=== PATIENT | female | born 1990 | race Caucasian/White ===

== ENCOUNTER 2020-03-31 11:57 | Inpatient (IN) ==
[2020-03-31] MEDS ORDERED: Ondansetron 4 MG/2 ML VIAL IVP PRN ×2 (12:12→14:42)
[2020-03-31] MEDS ORDERED: Famotidine 20 MG/2 ML VIAL IVP PRN (12:12)
[2020-03-31] MEDS ORDERED: Metoclopramide 10 MG/2 ML VIAL IVP PRN (12:12)
[2020-03-31] MEDS ORDERED: Lidocaine 1% 20 ML MDV INFILT PRN (12:12)
[2020-03-31] MEDS ORDERED: Naloxone 0.4 MG/ML INJ IVP PRN ×2 (12:12→14:42)
[2020-03-31] MEDS ORDERED: *HR* FentaNYL (PF) 100 MCG/2 ML VIAL IVP PRN (12:12)
[2020-03-31] MEDS ORDERED: Azithromycin 500 MG in 0.9 % Sodium Chloride 250 ML IVPB ONE (12:12)
[2020-03-31] MEDS ORDERED: miSOPROStoL 25 MCG TABLET PO PRN (12:16)
[2020-03-31] MEDS: Ringers Solution, Lactated 1,000 ML IVC SCH ×3 (13:20→19:52)
[2020-03-31 13:25] LABS: Basophils # 0.1 K/mcL (0.0-0.2); Basophils % 0.5 %; Eosinophils # 0.1 K/mcL (0.0-0.6); Eosinophils % 0.6 %; Hematocrit 36.4 % (35.3-44.9); Hemoglobin 11.9 g/dL (11.5-15.4); Immature Granulocytes % 0.7 % (0-4); Lymphocytes # 1.4 K/mcL (0.6-4.6); Lymphocytes % 13.2 %; Mean Corpuscular HGB Conc 32.7 g/dL (31.6-35.5); Mean Corpuscular Hemoglobin 28.4 pg (28.0-33.3); Mean Corpuscular Volume 86.9 fL (83.0-100.0); Mean Platelet Volume 10.4 fL (9.4-12.4); Monocytes # 0.7 K/mcL (0.0-1.3); Monocytes % 6.7 %; Neutrophils # 8.4 K/mcL (1.6-8.9); Platelet Count 252 K/mcL (140-400); Red Blood Count 4.19 M/mcL (3.82-4.97); Red Cell Distribution Width 12.5 % (11.5-14.5); Segmented Neutrophils % 78.3 %; White Blood Count 10.8 K/mcL (4.3-11.1)
[2020-03-31 13:49] LABS: Amphetamine Screen,Urine Negative ng/mL (Cutoff=1000); Barbiturate Screen,Urine Negative ng/mL (Cutoff=200); Benzodiazepines Screen,Urine Negative ng/mL (Cutoff=200); Cannabinoid Screen,Urine Negative ng/mL (Cutoff = 50); Cocaine Screen,Urine Negative ng/mL (Cutoff= 300); Opiate Screen,Urine Negative ng/mL (Cutoff=300); Phencyclidine Screen,Urine Negative ng/mL (Cutoff=25)
[2020-03-31] MEDS ORDERED: Ropivacaine/PF 0.2% 20 ML VIAL EP ONE (14:42)
[2020-03-31] MEDS ORDERED: *HR* FentaNYL (PF) 100 MCG/2 ML VIAL EP ONE (14:42)
[2020-03-31] MEDS ORDERED: EPHEDrine 50 MG/ML VIAL IVP PRN (14:42)
[2020-03-31] MEDS ORDERED: Epidural Premix (fent/bupiv) 110 ML EP SCH (14:45)
[2020-03-31] MEDS ORDERED: Oxytocin 20 units/ LR 1000 mL 20 UNIT/1,000 ML BAG IVC SCH (19:15)
[2020-04-01] MEDS ORDERED: Measles/Mumps/Rubella Vacc 0.5 ML VIAL SQ PRN (00:50)
[2020-04-01] MEDS ORDERED: Oxytocin 20 units/ LR 1000 mL 20 UNIT/1,000 ML BAG IVC SCH (00:50)
[2020-04-01] MEDS ORDERED: Benzocaine/Menthol 56 GM AEROSOL SPRAY TP PRN (00:50)
[2020-04-01] MEDS ORDERED: Lanolin 7 G OINT...G. TP PRN (00:50)
[2020-04-01 06:19] LABS: Basophils # 0.1 K/mcL (0.0-0.2); Basophils % 0.3 %; Eosinophils # 0.1 K/mcL (0.0-0.6); Eosinophils % 0.5 %; Hematocrit 33.3 % (35.3-44.9); Hemoglobin 10.8 g/dL (11.5-15.4); Immature Granulocytes % 0.6 % (0-4); Lymphocytes # 1.6 K/mcL (0.6-4.6); Lymphocytes % 11.1 %; Mean Corpuscular HGB Conc 32.4 g/dL (31.6-35.5); Mean Corpuscular Hemoglobin 28.1 pg (28.0-33.3); Mean Corpuscular Volume 86.5 fL (83.0-100.0); Mean Platelet Volume 10.2 fL (9.4-12.4); Monocytes # 1.1 K/mcL (0.0-1.3); Monocytes % 7.2 %; Neutrophils # 11.8 K/mcL (1.6-8.9); Platelet Count 237 K/mcL (140-400); Red Blood Count 3.85 M/mcL (3.82-4.97); Red Cell Distribution Width 12.6 % (11.5-14.5); Segmented Neutrophils % 80.3 %; White Blood Count 14.7 K/mcL (4.3-11.1)
[2020-04-01] MEDS: Acetaminophen 325 MG TABLET PO PRN ×2 (08:19→21:15)
[2020-04-01] MEDS: Prenatal Vit/FA 1 EACH TABLET PO SCH (08:19)
[2020-04-01] MEDS ORDERED: Ibuprofen 600 MG TABLET PO PRN (08:53)
[2020-04-02 07:39] VITALS: BP 100/61
[2020-04-02] MEDS: Acetaminophen 325 MG TABLET PO PRN (09:18)
[2020-04-02] MEDS: Prenatal Vit/FA 1 EACH TABLET PO SCH (09:18)
== END 2020-04-02 12:06 | disposition home or self-care (01) | DRG 560 ==
LOC: 1NENULAB 11:57 → 1NENUOBS 04-01 05:35
PROVIDERS: ADMIT Obstetrics & Gynecology; ATTEND Obstetrics & Gynecology